=== PATIENT | female | born 2000 | race Caucasian/White ===

== ENCOUNTER 2019-04-13 02:42 | Observation (INO) | payer BC, OTHER ==
[~2019-04-13] VITALS: Ht 165.1 cm; Wt 50.0 kg
--- NOTE | 2019-04-13 03:00 | NUR ---
TRAUMA LEVEL 2 CALLED AT THIS TIME.
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
[2019-04-13] MEDS ORDERED: normal saline 1000ml 1,000 ML IV ONE (03:05)
[2019-04-13] MEDS ORDERED: iohexol 300mg/ml 100ml inj. ONE (03:07)
[2019-04-13] MEDS ORDERED: TETanus/Pertussis (Acell)/Diphther VAC/PF (Tdap-Adult) 0.5ml syringe IM ONE (03:40)
[2019-04-13] MEDS ORDERED: ceFAZolin 1GM/D5W- ADD-VANTAGE 50 ML IV ONE (03:40)
[2019-04-13 03:41] LABS: URINE HCG NEGATIVE (NEG)
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
--- NOTE | 2019-04-13 03:58 | NUR ---
ANCEF STARTED AND 1 LITER NS AND PT GIVEN TETNUS BOOSTER. LABS DRAWN INCLUDING TYPE AND SCREEN
[2019-04-13 04:05] LABS: CLARITY,URINE CLEAR (Clear); COLOR,URINE STRAW (Yellow); GLUCOSE, URINE NEGATIVE (Neg); KETONES,URINE NEGATIVE (Neg); LEUKOCYTE ESTERASE ,URINE NEGATIVE (Neg); NITRITES, URINE NEGATIVE (Neg); OCCULT BLOOD,URINE MODERATE (Neg); PH,URINE 5.5 (4.8-8.0); PROTEIN,URINE NEGATIVE (Neg); UROBILINOGEN,URINE 0.2 E.U/dL (0.2-1.0)
[2019-04-13] MEDS ORDERED: NO HOME MEDS (04:10)
[2019-04-13 04:15] LABS: UA COLLECTION TYPE CLN CATCH MIDSTREAM
[2019-04-13 04:16] LABS: BASOPHILS # (AUTO) 0.1 X10'3 (0-0.2); BASOPHILS % (AUTO) 0.5 % (0-1); EOSINOPHILS % (AUTO) 0 % (0-6); HEMATOCRIT 43.8 % (35.0-45.0); HEMOGLOBIN 14.8 g/dl (12.0-16.0); LYMPHOCYTES # (AUTO) 0.6 X10'3 (1.1-4.8); LYMPHOCYTES % (AUTO) 4.5 % (21-51); MEAN CORPUSCULAR HEMOGLOBIN 30.6 PG (27.0-31.0); MEAN CORPUSCULAR HGB CONC 33.8 g/dL (33.0-36.5); MEAN CORPUSCULAR VOLUME 90.8 FL (78-98); MONOCYTES # (AUTO) 0.5 X10'3 (0-0.9); MONOCYTES % (AUTO) 3.5 % (2-12); NEUTROPHILS # (AUTO) 13.2 X10'3 (1.8-7.7); NEUTROPHILS % (AUTO) 91.5 % (42-75); PLATELET COUNT 360 X10'3 (140-440); RED BLOOD COUNT 4.82 X10'6 (4.20-5.60); RED CELL DISTRIBUTION WIDTH 13.6 % (11.5-14.5); WHITE BLOOD COUNT 14.4 X10'3 (4.5-11.0)
[2019-04-13 04:18] LABS: BACTERIA,URINE NONE SEEN /HPF (Neg); RBC,URINE 0-2 /HPF (0-2); WBC,URINE NONE SEEN /HPF (0-4)
[2019-04-13 04:19] LABS: SQUAMOUS EPITHELIAL CELL,UR FEW /LPF (FEW)
[2019-04-13 04:27] LABS: ALANINE AMINOTRANSFERASE 50 U/L (12-78); ALBUMIN 4.2 G/DL (3.4-5.0); ALBUMIN/GLOBULIN RATIO 1.4 (1.1-1.5); ALKALINE PHOSPHATASE 80 IU/L (46-116); ANION GAP 11 (8-16); ASPARTATE AMINO TRANSFERASE 56 U/L (10-37); BILIRUBIN,TOTAL 0.8 MG/DL (0.1-1.0); BLOOD UREA NITROGEN 6 MG/DL (7-18); BUN/CREATININE RATIO 9.2 (6.6-38.0); CHLORIDE 106 MMOL/L (99-107); CREATININE 0.65 MG/DL (0.40-0.90); ETHANOL 0.256 GM/DL (0.0-0.010); GLUCOSE 105 MG/DL (70-104); POTASSIUM 3.5 MMOL/L (3.5-5.1); SODIUM 142 MMOL/L (135-145); TOTAL CARBON DIOXIDE 24.7 MMOL/L (24-32); TOTAL PROTEIN 7.3 G/DL (6.4-8.2); eGFR > 90 ML/MIN
[2019-04-13 04:29] LABS: URINE AMPHETAMINE SCREEN NEGATIVE (Neg); URINE BARBITUATE SCREEN NEGATIVE (Neg); URINE BENZODIAZEPINES SCREEN NEGATIVE (Neg); URINE CANNABINOID SCREEN NEGATIVE (Neg); URINE COCAINE SCREEN POSITIVE (Neg); URINE METHADONE SCREEN NEGATIVE (Neg); URINE OPIATE SCREEN NEGATIVE (Neg); URINE PHENCYCLIDINE SCREEN NEGATIVE (Neg)
[2019-04-13] MEDS ORDERED: dextrose 5%-1/2 normal saline 1,000 ML IV SCH (04:29)
--- NOTE | 2019-04-13 04:29 | NUR ---
WOUND IRRIGATED, SUTURE SUPPLIES AT BEDSIDE. HR 1085, OTHERWISE VSS. PT REPORTS STARTING TO HAVE SOME PAIN TO THE WOUND. PTS ROOMATE AND FRIEND, JIGAR, JUST LEFT BEDSIDE. PT IS AGREEABLE TO ADMISSION.
[2019-04-13] MEDS ORDERED: LORazepam 1 MG tablet PO PRN (04:30)
[2019-04-13] MEDS ORDERED: LORazepam 2 mg/ml vial IV PRN (04:30)
[2019-04-13] MEDS ORDERED: ondansetron/PF 4mg/2ml inj IV PRN (04:30)
[2019-04-13] MEDS ORDERED: thiamine 100mg/ml 2ml inj. IV ONE (04:30)
[2019-04-13] MEDS ORDERED: cyclobenzaprine 10mg tablet PO PRN (04:30)
[2019-04-13] MEDS ORDERED: loperamide 2mg capsule PO PRN ×2 (04:30)
[2019-04-13] MEDS ORDERED: magnesium hydroxide 30ml (MOM) UD suspension PO PRN (04:30)
[2019-04-13] MEDS ORDERED: mag hydrox/Alum hydrox/simeth 30ml oral suspension PO PRN ×2 (04:30)
[2019-04-13] MEDS ORDERED: HYDROcodone/acetaminophen 10/325mg tab PO PRN (04:30)
[2019-04-13] MEDS ORDERED: haloperidol 5mg tablet PO PRN (04:30)
[2019-04-13] MEDS ORDERED: dextrose 50%-water 50ml dispensing syringe IV PRN (04:30)
[2019-04-13] MEDS ORDERED: HYDROcodone/acetaminophen 5mg/325mg tablet PO PRN (04:30)
[2019-04-13] MEDS ORDERED: haloperidol lactate 5mg/ml inj IM PRN (04:30)
[2019-04-13] MEDS ORDERED: acetaminophen 325mg tablet PO PRN ×2 (04:30)
[2019-04-13] MEDS ORDERED: morphine 2 MG/ML inj. syringe IV PRN ×2 (04:30)
[2019-04-13] MEDS ORDERED: dicyclomine 10 MG capsule PO PRN (04:30)
[2019-04-13] MEDS: clindamycin 600mg/D5W 50ml 50 ML IV SCH ×2 (05:01→07:50)
--- NOTE | 2019-04-13 05:22 | NUR ---
report called from BLAKE Hercules in ED. awaiting pt arrival
--- NOTE | 2019-04-13 05:51 | NUR ---
pt brought to unit and ambulated self to bed. wound intact with sutures in place. vitals 98.3F 93HR 100% RA 18R 120/77. will continue to monitor
--- NOTE | 2019-04-13 06:41 | NUR ---
Problems reprioritized. Patient report given, questions answered & plan of care reviewed with BLAKE Knox.
[2019-04-13 07:00] VITALS: BP 122/74
[2019-04-13] MEDS ORDERED: thiamine 100mg tablet PO SCH (08:00)
[2019-04-13] MEDS ORDERED: multivitamins, therapeutics tablet PO SCH (08:00)
[2019-04-13] MEDS ORDERED: folic acid 1mg tablet PO SCH (08:00)
[2019-04-13 09:50] LABS: BASOPHILS # (AUTO) 0.1 X10'3 (0-0.2); BASOPHILS % (AUTO) 0.3 % (0-1); EOSINOPHILS % (AUTO) 0.1 % (0-6); HEMATOCRIT 40.1 % (35.0-45.0); HEMOGLOBIN 13.6 g/dl (12.0-16.0); LYMPHOCYTES # (AUTO) 2.8 X10'3 (1.1-4.8); MEAN CORPUSCULAR HEMOGLOBIN 30.7 PG (27.0-31.0); MEAN CORPUSCULAR HGB CONC 33.9 g/dL (33.0-36.5); MEAN CORPUSCULAR VOLUME 90.6 FL (78-98); MONOCYTES # (AUTO) 1.8 X10'3 (0-0.9); MONOCYTES % (AUTO) 11.1 % (2-12); NEUTROPHILS # (AUTO) 11.6 X10'3 (1.8-7.7); NEUTROPHILS % (AUTO) 71.5 % (42-75); PLATELET COUNT 332 X10'3 (140-440); RED BLOOD COUNT 4.43 X10'6 (4.20-5.60); RED CELL DISTRIBUTION WIDTH 13.9 % (11.5-14.5); WHITE BLOOD COUNT 16.3 X10'3 (4.5-11.0)
[2019-04-13] MEDS ORDERED: CLIN-5 PO (12:15)
--- NOTE | 2019-04-13 12:36 | NUR ---
PT DIDN'T NEED 1200 BS CHECK. SHE IS BEING DISCHARGED
--- NOTE | 2019-04-13 14:04 | NUR ---
PT DIDN'T FEEL THE NEED FOR NASAL SWAB AND DARTING
[2019-04-13] MEDS ORDERED: lactobacillus rhamnosus 10,000 MMU CELLS/CAPSULE PO SCH (20:00)
== END 2019-04-13 14:00 | disposition home or self-care (01) ==
LOC: ER 02:43 → SUR 3N 05:33
PROVIDERS: ADMIT Internal Medicine; ATTEND Family Medicine
DX: S11.91XA Laceration without foreign body of unspecified part of neck, initial encounter (principal); W17.2XXA Fall into hole, initial encounter; F14.90 Cocaine use, unspecified, uncomplicated; F10.129 Alcohol abuse with intoxication, unspecified; D72.829 Elevated white blood cell count, unspecified; Y93.89 Activity, other specified; Y92.89 Other specified places as the place of occurrence of the external cause; Y99.8 Other external cause status; Z23 Encounter for immunization
CPT/HCPCS: 12002; 36415; 70491; 80053; 80305; 80320; 81001; 81025; 85025; 85610; 86885; 86900; 86901; 90471; 96365; 96366; 96367; 96375; 99284; G0378; J0690; J3411; Q9967; J3490